=== PATIENT | female | born 1970 | race Two or more races ===

== ENCOUNTER → 2024-09-26 | Outpatient (CLI) | payer BC ==
[2024-09-26 15:01] LABS: Urine Bacteria None Seen /hpf (None Seen)
[2024-09-26 15:22] LABS: Basophils # (auto) 0.1 10 ^3/uL (0-0.2); Basophils % (auto) 0.9 % (0.0-2.0); Eosinophils # (auto) 0.3 10 ^3/uL (0-0.8); Eosinophils % (auto) 3.5 % (0.0-7.0); Hematocrit 42.9 % (36.0-46.0); Hemoglobin 14.6 g/dL (12.2-16.2); Lymphocytes # (auto) 2.4 10 ^3/uL (0.4-5.4); Mean Corpuscular Hemoglobin 30.5 pg (28.0-32.0); Mean Corpuscular Volume 89.7 fL (80.0-100.0); Monocytes # (auto) 0.8 10 ^3/uL (0-1.3); Monocytes % (auto) 11.4 % (0.0-12.0); Neutrophils # (auto) 3.8 10 ^3/uL (1.6-8.6); Neutrophils % (auto) 51.2 % (37.0-80.0); Platelet Count (auto) 440 10^3/uL (140-450); Red Blood Cells 4.78 10^6/uL (4.0-5.20); Red Cell Distribution Width 13.6 % (11.8-14.3); White Blood Cell 7.4 10^3/uL (4.4-10.8)
[2024-09-26 15:25] LABS: Urine Blood Negative /uL (Negative); Urine Clarity Clear (Clear); Urine Color Light-Yellow (Yellow); Urine Protein, UAD Negative (Negative); Urine Specific Gravity 1.014 (1.001-1.035); Urine Squamous Epithelial Cell FEW /hpf (<5); Urine Urobilinogen Normal (Negative); Urine WBC 1 /hpf (0 - 5); Urine pH 5.5 (5.0-9.0)
[2024-09-26 15:47] LABS: Alanine Aminotransferase 27 U/L (7-40); Alkaline Phosphatase 83 U/L (46-116); Calcium 10.3 mg/dL (8.7-10.4); Carbon Dioxide 26 mmol/L (20-31); Chloride 105 mmol/L (98-107)
[2024-09-26 15:48] LABS: Albumin 4.5 g/dL (3.2-4.8); Anion Gap 8 (5-15); Aspartate Aminotransferase 17 U/L (13-40); BUN/Creatinine Ratio 11.3 (10.0-20.0); Bilirubin, Total 0.8 mg/dL (0.2-1.0); Potassium 4.1 mmol/L (3.5-5.1); Sodium 139 mmol/L (136-145); Total Protein 7.4 g/dL (5.7-8.2)
[2024-09-26 15:54] LABS: Blood Urea Nitrogen 7 mg/dL (9-23); Glucose 118 mg/dL (74-106)
[2024-09-26 16:23] LABS: HDL Cholesterol 47 mg/dL (40-59)
[2024-09-26 16:24] LABS: Cholesterol 219 mg/dL (< 200); LDL Cholesterol 167 mg/dL (< 100); Triglycerides 215 mg/dL (< 150)
== END | disposition home or self-care (01) ==
LOC: LAB 14:46
PROVIDERS: ATTEND Nurse Practitioner Family
DX: Z00.01 Encounter for general adult medical examination with abnormal findings (principal); I10 Essential (primary) hypertension; N95.1 Menopausal and female climacteric states; E66.9 Obesity, unspecified
CPT/HCPCS: 36415; 80053; 80061; 81001; 82306; 82672; 84403; 84443; 85025

== ENCOUNTER → 2024-10-18 | Outpatient (CLI) | payer BC ==
--- NOTE | 2024-10-18 10:24 | DVH ---
ULTRASOUND-GUIDED BIOPSY OF THE THYROID GLAND HISTORY: TYROID NODULE COMPARISON: None TECHNIQUE: Informed consent was obtained. Risks versus benefits were discussed. Patient consents to the procedure. A time out was conducted confirming lab values, the correct patient, the correct proce dure and site of procedure. FINDINGS: Informed consent was obtained. Risks versus benefits were discussed. Patient consents to the procedur e. A time out was conducted confirming lab values, the correct patient, the correct procedure and sit e of procedure. The patient was prepped and draped in the usual sterile fashion. Local anesthesia was achieved using 1% lidocaine. A 22 needle was inserted into the target lesion of the LEFT thyroid gland under ultras ound guidance. separate fine needle aspirations were performed and submitted to the on-site pathologi st. Once the pathologist confirmed that sufficient cellular material had been obtained, the procedure was terminated. The patient tolerated the procedure well without any immediate complications and recovered for 2 hour s. The patient was discharged without incident. IMPRESSION: Ultrasound-guided fine-needle aspiration biopsy of the LEFT lobe thyroid nodule.
== END | disposition home or self-care (01) ==
LOC: XYW 08:43
PROVIDERS: ATTEND Nurse Practitioner Family
DX: E04.1 Nontoxic single thyroid nodule (principal)
CPT/HCPCS: 10005; 76536; 76942

== ENCOUNTER → 2025-01-18 | Day surgery (SDC) | payer BC ==
[2025-01-16 14:51] LABS: Urine Bacteria None Seen /hpf (None Seen)
[2025-01-16 14:57] LABS: Urine Blood Negative /uL (Negative); Urine Clarity Clear (Clear); Urine Color Colorless (Yellow); Urine Protein, UAD Negative (Negative); Urine Specific Gravity 1.005 (1.001-1.035); Urine Squamous Epithelial Cell FEW /hpf (<5); Urine Urobilinogen Normal (Negative); Urine WBC < 1 /HPF (0-5); Urine pH 6.5 (5.0-9.0)
[2025-01-16 15:00] LABS: Basophils # (auto) 0.1 10 ^3/uL (0-0.2); Eosinophils # (auto) 0.1 10 ^3/uL (0-0.8); Eosinophils % (auto) 1.5 % (0.0-7.0); Hematocrit 41.6 % (36.0-46.0); Hemoglobin 14.7 g/dL (12.2-16.2); Lymphocytes # (auto) 2.7 10 ^3/uL (0.4-5.4); Lymphocytes % (auto) 26.6 % (10.0-50.0); Mean Corpuscular Hemoglobin 30.8 pg (28.0-32.0); Mean Corpuscular Hgb Conc. 35.3 g/dL (32.0-36.0); Mean Corpuscular Volume 87.4 fL (80.0-100.0); Monocytes # (auto) 1.1 10 ^3/uL (0-1.3); Monocytes % (auto) 10.9 % (0.0-12.0); Neutrophils # (auto) 6.2 10 ^3/uL (1.6-8.6); Nucleated Red Blood Cells % 0.1 %; Platelet Count (auto) 346 10^3/uL (140-450); Red Blood Cells 4.77 10^6/uL (4.0-5.20); Red Cell Distribution Width 13.3 % (11.8-14.3); White Blood Cell 10.3 10^3/uL (4.4-10.8)
[2025-01-16 15:15] LABS: INR 0.98 (0.9-1.15); Partial Thromboplastin Time 26.2 SEC (24.5-34.5); Prothrombin Time 10.4 sec (9.3-11.8)
[2025-01-16 15:44] LABS: Alanine Aminotransferase 26 U/L (7-40); Alkaline Phosphatase 87 U/L (46-116); Anion Gap 12 (5-15); Aspartate Aminotransferase 19 U/L (13-40); BUN/Creatinine Ratio 15.3 (10.0-20.0); Bilirubin, Total 0.5 mg/dL (0.2-1.0); Calcium 9.5 mg/dL (8.7-10.4); Carbon Dioxide 25 mmol/L (20-31); Chloride 101 mmol/L (98-107); Sodium 138 mmol/L (136-145); Total Protein 7.5 g/dL (5.7-8.2)
[2025-01-16 15:45] LABS: Albumin 4.9 g/dL (3.2-4.8); Blood Urea Nitrogen 9 mg/dL (9-23); Glucose 107 mg/dL (74-106)
[~2025-01-18] VITALS: Ht 172.7 cm; Wt 89.8 kg
[~2025-01-18] MED LIST: AMLO1TAB22 PO; ASCO500T11 PO; ATOR10TA PO; CHOL200064 PO; CYAN-17 PO; LOSA-533 PO; OMEP20TA PO; PROPOFOL 10 MG/ML 20 ML IV ONE; SUCR1TAB31 OR; fentaNYL CITRATE 100 MCG/2 ML VL ONE
[2025-01-18 11:28] VITALS: PULSE 105; RESP 16; TEMP 98.5; O2SAT 94
--- NOTE | 2025-01-18 11:38 | DVHOP2 ---
Operative Report DATE OF OPERATION: 01/18/25 PROCEDURE: Upper Endoscopy with biopsy. PREOPERATIVE INDICATION: The patient is a 55 -year-old female undergoing endoscopy for chronic GERD and dyspepsia POSTOPERATIVE DIAGNOSES: 1. Slightly irregular squamocolumnar junction but no significant hiatal hernia or esophagitis 2. Mild gastritis with some hyperemia erythema 3. Multiple benign gastric fundic polyps were seen and removed by cold snare polypectomy 4. Minimal duodenitis of the duodenal bulb otherwise normal examination up to the 2nd and 3rd part of the duodenum PROCEDURE PERFORMED BY: Boston Tolentino GI NURSE: Delmy SCOPE: Olympus videoendoscope. ASA CLASS: 2. PREOPERATIVE MEDICATIONS: Mac sedationDr. Acuna PROCEDURE IN DETAIL: After obtaining an informed consent, the patient was placed on left lateral decubitus position. The patient was then sedated with the above medications. A bite block was placed between her teeth. The endoscope was then passed through the oropharynx, into the esophagus, and through the stomach and pylorus up to the second and third part of the duodenum. The endoscope was then withdrawn. The 2nd and 3rd part of the duodenal were normal and the duodenal bulb showed minimal duodenitis. Duodenal biopsies were obtained. The pre-pyloric area antrum and body of the stomach showed mild gastritis with some hyperemia erythema. Gastric biopsies were obtained. There were multiple benign gastric fundic polyps and they were removed via cold snare polypectomy and the specimens were retrieved The endoscope was then withdrawn into the distal esophagus where she had a slightly irregular squamocolumnar junction but no significant erosive esophagitis and no significant hiatal hernia The remaining distal and proximal esophagus and oropharynx were unremarkable The patient tolerated the procedure well without difficulty. COMPLICATIONS : None SPECIMENS: Duodenal biopsies Gastric biopsies Gastric polyps DISPOSITION: Stable D/C to home PLAN: 1. Await for biopsy result 2. Continue pantoprazole 20 mg p.o. daily 3. Carafate 1 g p.o. twice a day 4. DC aspirin NSAIDs smoking alcohol 5. Outpatient follow up with me in 4-6 weeks to review results and discuss further management BOSTON TOLENTINO MD January 18, 2025 11:38
[2025-01-18 11:43] VITALS: PULSE 83; RESP 13; O2SAT 97
[2025-01-18 11:58] VITALS: BP 130/76; PULSE 79; RESP 12; O2SAT 95
== END | disposition home or self-care (01) ==
LOC: GI 08:50
PROVIDERS: ATTEND Internal Medicine Gastroenterology
DX: K31.7 Polyp of stomach and duodenum (principal); K21.9 Gastro-esophageal reflux disease without esophagitis; K29.80 Duodenitis without bleeding; K29.50 Unspecified chronic gastritis without bleeding; B96.81 Helicobacter pylori [H. pylori] as the cause of diseases classified elsewhere; E66.9 Obesity, unspecified; Z68.31 Body mass index [BMI] 31.0-31.9, adult; F17.200 Nicotine dependence, unspecified, uncomplicated
CPT/HCPCS: 36415; 43239; 43251; 80053; 81001; 84702; 85025; 85610; 85730; 88305; 88312; 88342; J2704; J3010; J7030

== ENCOUNTER → 2025-03-21 | Outpatient (CLI) | payer BC ==
[~2025-03-21] MED LIST changes: -PROPOFOL 10 MG/ML 20 ML IV ONE; -fentaNYL CITRATE 100 MCG/2 ML VL ONE
[2025-03-21 15:46] LABS: Hematocrit 41.2 % (36.0-46.0); Hemoglobin 14.3 g/dL (12.2-16.2); Mean Corpuscular Hemoglobin 31.0 pg (28.0-32.0); Mean Corpuscular Volume 89.1 fL (80.0-100.0); Nucleated Red Blood Cells % 0.0 %
[2025-03-21 16:17] LABS: Alanine Aminotransferase 31 U/L (7-40); Albumin 4.7 g/dL (3.2-4.8); Alkaline Phosphatase 76 U/L (46-116); Anion Gap 11 (5-15); BUN/Creatinine Ratio 9.7 (10.0-20.0); Calcium 10.0 mg/dL (8.7-10.4); Carbon Dioxide 24 mmol/L (20-31); Chloride 102 mmol/L (98-107); Glucose 105 mg/dL (74-106); Magnesium 1.7 mg/dL (1.6-2.6); Potassium 3.9 mmol/L (3.5-5.1); Sodium 137 mmol/L (136-145); Total Protein 7.1 g/dL (5.7-8.2); Triglycerides 135 mg/dL (< 150)
[2025-03-21 16:18] LABS: Bilirubin, Total 0.7 mg/dL (0.2-1.0); Cholesterol 198 mg/dL (< 200)
[2025-03-21 16:21] LABS: Blood Urea Nitrogen 6 mg/dL (9-23); Free T3 3.14 pg/mL (2.3-4.2); Free T4 (Free Thyroxine) 1.08 ng/dL (0.89-1.76); HDL Cholesterol 66 mg/dL (40-59)
[2025-03-21 16:30] LABS: Uric Acid 7.9 mg/dL (3.1-7.8)
== END | disposition home or self-care (01) ==
LOC: LAB 15:20
PROVIDERS: ATTEND Internal Medicine
DX: R73.09 Other abnormal glucose (principal)
CPT/HCPCS: 36415; 80053; 80061; 82607; 82652; 82746; 83036; 83735; 84439; 84443; 84480; 84481; 84550; 85025

== ENCOUNTER 2025-04-17 15:36 | Outpatient (CLI) | payer BC ==
[2025-04-17 16:03] LABS: Triglycerides 136 mg/dL (< 150)
[2025-04-17 16:05] LABS: Cholesterol 178 mg/dL (< 200)
[2025-04-17 16:07] LABS: HDL Cholesterol 71 mg/dL (40-59)
== END 2025-04-17 17:00 | disposition home or self-care (01) ==
LOC: LAB 15:36
PROVIDERS: ATTEND Nurse Practitioner Family
DX: E78.5 Hyperlipidemia, unspecified (principal)
CPT/HCPCS: 36415; 80061